=== PATIENT | female | born 1970 | race Caucasian/White ===

== ENCOUNTER 2019-12-19 00:58 | Outpatient (CLI) | payer BC, SELFPAY | END 2019-12-19 00:59 | disposition home or self-care (01) | PROVIDERS: Visit Provider Internal Medicine | DX: R55 Syncope and collapse (principal); R00.0 Tachycardia, unspecified | CPT/HCPCS: 83520 ==

== ENCOUNTER 2020-03-16 10:17 | Outpatient (CLI) | payer BC, SELFPAY ==
--- NOTE | 2020-03-16 10:22 | MM_ITS ---
WS: [id number] Exam: [id number] Date/Time of Exam: 03/16/2020 10:23 AM Reason For Exam: SCREENING VIEWS: MLO and CC views both breasts. Comparison made with prior exam of 02/22/2016. Findings: There was no sign of mass, architectural distortion or suspicious calcification in either breast. He terogeneously dense MM/[id number] Impression: BI-RADS: 2-Benign FOLLOW-UP: 1 Year Follow-up This mammogram was also analyzed by the Computer Aided Detection System R2 Imag e Vibrator Operator.
== END 2020-03-16 10:18 | disposition home or self-care (01) ==
LOC: RADSHAW 10:20
PROVIDERS: PCP Family Medicine; Visit Provider Family Medicine
DX: Z12.31 Encounter for screening mammogram for malignant neoplasm of breast (principal)
CPT/HCPCS: 77067